=== PATIENT | male | born 1965 ===

== ENCOUNTER 2016-11-03 11:31 | Emergency (ER) | payer SELFPAY ==
[2016-11-03 11:43] VITALS: TEMP 98.9; O2SAT 100
--- NOTE | 2016-11-03 11:59 | ED PDOC ---
HPI: Chest Pain Time Seen by Provider: 11/03/16 11:42 Chief Complaint (Nursing): Chest Pain History Per: Patient (was sent by [facility] for evaluation of left cp which he has had intermittently for the past 20 days. He has noticed that it would occur before lunch and resolve after lunch. Although he has dizziness and left arm pain, these are not associated with the cp. these symptoms occcur independently of cp. symptoms last about 5 minutes and resolves usually after eating. He has noticed some sore throat and burning sensations when he lays down.) History/Exam Limitations: no limitations Onset/Duration Of Symptoms: Mins (5), Days (20), Intermittent Episodes, Sudden Onset Context: Food (worse before lunch, relief after lunch) Quality: Sharp (localized) Associated Symptoms: denies: Nausea, Dyspnea, Diaphoresis, Syncope Exacerbating Factors: Deep Breathing, Other (before lunch) Alleviating Factors: Other (eating) Past Medical History Reviewed: Historical Data, Nursing Documentation, Vital Signs Vital Signs: Last Vital Signs Temp 98.9 F 11/03/16 11:41 Pulse 64 11/03/16 11:41 Resp 19 11/03/16 11:41 BP 117/74 11/03/16 11:41 Pulse Ox 100 11/03/16 12:05 - Medical History PMH: Gastritis, Hypercholesterolemia - Surgical History Surgical History: No Surg Hx - Family History Family History: States: CAD (father has [place] when he was in his 70's) - Living Arrangements Living Arrangements: With Family - Social History Current smoker - smoking cessation education provided: No Alcohol: Occasional Drugs: Denies - Home Medications Home Medications: Ambulatory Orders Medication Instructions Recorded DiphenhydrAMINE [Benadryl] 50 mg PO Q4H PRN #30 cap 03/18/16 Hydrocortisone 1% Cream [Cortizone 1 dap TOP BID #1 tube 03/18/16 1% Cream] Famotidine [Pepcid] 20 mg PO BID #28 tab 11/03/16 - Allergies Allergies/Adverse Reactions: Allergies Allergy/AdvReac Type Severity Reaction Status Date / Time No Known Allergies Allergy Verified 12/02/15 22:42 ROSA ELENA Risk Score for UA/NSTEMI - ROSA ELENA Risk Score Age > 64: NO 3 or more CAD Risk Factors: NO Known CAD (Stenosis greater than 50%): NO Aspirin use in past 7 days: NO Severe Angina: NO EKG ST changes greater than 0.5mm: NO Positive Cardiac Marker: NO ROSA ELENA Score: 0 Risk %: 5% Review of Systems ROS Statement: Except As Marked, All Systems Reviewed And Found Negative Cardiovascular: Positive for: Chest Pain Respiratory: Negative for: Cough, Shortness of Breath Gastrointestinal: Negative for: Nausea, Vomiting Physical Exam - Reviewed Nursing Documentation Reviewed: Yes Vital Signs Reviewed: Yes - Physical Exam Appears: Positive for: Well, Non-toxic, No Acute Distress Head Exam: Positive for: ATRAUMATIC, NORMAL INSPECTION, NORMOCEPHALIC Skin: Positive for: Normal Color, Warm, DRY Eye Exam: Positive for: Normal appearance ENT: Positive for: Normal ENT Inspection Neck: Positive for: Normal Cardiovascular/Chest: Positive for: Regular Rate, Rhythm Respiratory: Positive for: CNT, Normal Breath Sounds Gastrointestinal/Abdominal: Positive for: Normal Exam, Bowel Sounds, Soft Back: Positive for: Normal Inspection Extremity: Positive for: Normal ROM Neurologic/Psych: Positive for: Alert, Oriented - Laboratory Results Result Diagrams: 11/03/16 12:00 11/03/16 12:20 - ECG O2 Sat by Pulse Oximetry: 100 Disposition - Clinical Impression Clinical Impression: Atypical chest pain - Patient ED Disposition Is Patient to be Admitted: No Doctor Will See Patient In The: Office Counseled Patient/Family Regarding: Diagnosis, Need For Followup - Disposition Disposition: Routine/Home Disposition Time: 13:20 Condition: STABLE Prescriptions: Famotidine [Pepcid] 20 mg PO BID #28 tab Instructions: Gastroesophageal Reflux Disease (ED), Chest Wall Pain (ED) Forms: [facility] (Syriac) Print Language: KYRGYZ - POA Present On Arrival: None
[2016-11-03 12:24] LABS: BASO # 0.1 K/uL (0.0-0.2); BASO % 1.2 % (0.0-2.0); EOS # 0.4 K/uL (0.0-0.7); EOS % 5.6 % (0.0-4.0); HEMATOCRIT 39.7 % (35.0-51.0); LYMPH # 2.4 K/uL (1.0-4.3); LYMPH % 37.5 % (20.0-40.0); MEAN CELL VOLUME 87.4 fl (80.0-94.0); MEAN CORPUSCULAR HEMOGLOBIN 29.4 pg (27.0-31.0); MEAN CORPUSCULAR HGB CONC 33.7 g/dL (33.0-37.0); MEAN PLATELET VOLUME 10.4 fl (7.2-11.7); MONO # 0.6 K/uL (0.0-0.8); MONO % 9.9 % (0.0-10.0); NEUT # 2.9 K/uL (1.8-7.0); NEUT % 45.8 % (50.0-75.0); NRBC % 0.1 % (0.0-0.0); RED CELL DISTRIBUTION WIDTH 13.7 % (11.5-14.5); WHITE BLOOD COUNT 6.3 K/uL (4.8-10.8)
[2016-11-03 12:31] LABS: BLOOD UREA NITROGEN 21 mg/dl (9-20); CARBON DIOXIDE 25 mmol/L (22-30); CHLORIDE 107 mmol/L (98-107); GFR AFRICAN-AMERICAN > 60; GLUCOSE,RANDOM 101 mg/dL (75-110); POTASSIUM 4.2 MMOL/L (3.6-5.0); SODIUM 140 mmol/l (132-148)
--- NOTE | 2016-11-03 13:36 | RAD ---
HISTORY: cp for 20 days COMPARISON: No prior. TECHNIQUE: Chest PA and lateral FINDINGS: LUNGS: No active pulmonary disease. PLEURA: No significant pleural effusion identified. No pneumothorax apparent. CARDIOVASCULAR: Normal. OSSEOUS STRUCTURES: Minor multilevel degenerative spondylosis of the thoracic spine VISUALIZED UPPER ABDOMEN: Normal. OTHER FINDINGS: None. IMPRESSION: No active disease.
[2016-11-03 14:22] VITALS: BP 110/70; PULSE 70; RESP 18
--- NOTE | 2016-11-04 21:13 | CARD ---
APPROVED REPORT EKG Measurement Heart [id number] <Conclusion> Normal sinus rhythm with sinus arrhythmia Normal ECG
== END 2016-11-03 14:13 | disposition home or self-care (01) ==
LOC: H.ER 11:31
DX: R07.89 Other chest pain (principal)

== ENCOUNTER 2016-11-04 21:23 | Emergency (ER) | payer SELFPAY ==
[2016-11-04 21:49] VITALS: BMI 36.2
[2016-11-04 21:52] VITALS: BP 119/83; PULSE 72; RESP 16; TEMP 98.2; O2SAT 98
--- NOTE | 2016-11-04 22:18 | ED PDOC ---
HPI: General Adult Time Seen by Provider: 11/04/16 21:33 Chief Complaint (Nursing): Trauma History Per: Patient Additional Complaint(s): Pt. states earlier today at 1600 a metal window accidentally closed and fell on his head. Pt. reports no LOC but has been having headache since. Denies LOC, neck pain, N/V. Past Medical History Reviewed: Historical Data, Nursing Documentation, Vital Signs Vital Signs: Last Vital Signs Temp 98.2 F 11/04/16 21:49 Pulse 72 11/04/16 21:49 Resp 16 11/04/16 21:49 BP 119/83 11/04/16 21:49 Pulse Ox 98 11/04/16 22:22 - Medical History PMH: Gastritis, Hypercholesterolemia - Family History Family History: States: CAD (father has [place] when he was in his 70's) - Home Medications Home Medications: Ambulatory Orders Medication Instructions Recorded DiphenhydrAMINE [Benadryl] 50 mg PO Q4H PRN #30 cap 03/18/16 Hydrocortisone 1% Cream [Cortizone 1 dap TOP BID #1 tube 03/18/16 1% Cream] Famotidine [Pepcid] 20 mg PO BID #28 tab 11/03/16 - Allergies Allergies/Adverse Reactions: Allergies Allergy/AdvReac Type Severity Reaction Status Date / Time No Known Allergies Allergy Verified 11/04/16 21:49 Review of Systems ROS Statement: Except As Marked, All Systems Reviewed And Found Negative Neurological: Positive for: Headache Physical Exam - Physical Exam Appears: Positive for: Well, Non-toxic, No Acute Distress Head Exam: Negative for: ATRAUMATIC, NORMAL INSPECTION (small linear ecchymotic area on top of head without break in skin integrity), NORMOCEPHALIC Skin: Positive for: Normal Color, Warm. Negative for: Rash Eye Exam: Positive for: Normal appearance, EOMI, PERRL ENT: Positive for: TM Is/Are (no hemotympanum b/l) Neck: Positive for: Normal, Painless ROM Cardiovascular/Chest: Positive for: Regular Rate, Rhythm, Chest Non Tender Respiratory: Positive for: CNT, Normal Breath Sounds Back: Positive for: Normal Inspection. Negative for: Vertebral Tenderness ( including cervical spine tenderness) Extremity: Positive for: Normal ROM Neurologic/Psych: Positive for: Alert, Oriented. Negative for: Aphasia, Facial Droop - ECG O2 Sat by Pulse Oximetry: 98 - Progress ED Course And Treament: CT head w/o contrast ordered. Tylenol 975mg PO ordered. CT head w/o contrast: negative. Disposition - Clinical Impression Clinical Impression: Head injury - Patient ED Disposition Is Patient to be Admitted: No - Disposition Referrals: [facility] [Outside] Disposition: Routine/Home Disposition Time: 01:23 Condition: STABLE Instructions: Head Injury (ED) Forms: [facility] (Monegasque) Print Language: LAO
--- NOTE | 2016-11-05 01:11 | CT ---
EXAM: CT Head Without Intravenous Contrast CLINICAL HISTORY: 51 years old, male; Injury or trauma; Injury Hit top of head; Initial encounter; Blunt trauma (contusions or hematomas) TECHNIQUE: Axial computed tomography images of the head/brain without intravenous contrast. All CT scans at this facility use one or more dose reduction techniques, viz.: automated exposure control; ma/kV adjustment per patient size (including targeted exams where dose is matched to indication; i.e. head); or iterative reconstruction technique. Coronal and sagittal reformatted images were created and reviewed. COMPARISON: No relevant prior studies available. FINDINGS: Brain: No intracranial hemorrhage. No mass. No edema. Ventricles: No hydrocephalus. Bones/joints: No acute fracture. Soft tissues: Unremarkable. Sinuses: Scattered minimal mucosal thickening. Mastoid air cells: No mastoid effusion. Orbits: Unremarkable as visualized. IMPRESSION: 1. No intracranial hemorrhage.
== END 2016-11-05 01:37 | disposition home or self-care (01) ==
LOC: H.ER 21:23
DX: S09.90XA Unspecified injury of head, initial encounter (principal); W22.8XXA Striking against or struck by other objects, initial encounter; Y93.89 Activity, other specified; Y92.89 Other specified places as the place of occurrence of the external cause